=== PATIENT | male | born 1990 | race African-American/Black ===

== ENCOUNTER 2021-09-16 14:36 | Emergency (ER) | payer MEDICARE, MEDICAID ==
[~2021-09-16] VITALS: Ht 170.2 cm; Wt 70.0 kg
[2021-09-16 14:50] VITALS: BP 117/83
== END 2021-09-16 17:11 | disposition home or self-care (01) ==
LOC: ER 14:36
DX: Z48.02 Encounter for removal of sutures (principal)
CPT/HCPCS: 99281

== ENCOUNTER 2022-01-08 15:56 | Emergency (ER) | payer MEDICARE, MEDICAID ==
[~2022-01-08] VITALS: Ht 170.2 cm; Wt 69.0 kg
[2022-01-08 19:05] VITALS: BP 104/71
[2022-01-08 19:28] LABS: CLARITY URINE CLEAR (CLEAR); COLOR URINE YELLOW (YELLOW); KETONES URINE NEGATIVE (NEGATIVE); LEUKOCYTE ESTERASE URINE NEGATIVE (NEGATIVE); NITRITE URINE NEGATIVE (NEGATIVE)
[2022-01-08 19:29] LABS: OCCULT BLOOD URINE NEGATIVE (NEGATIVE); PROTEIN URINE TRACE (NEGATIVE); SPECIFIC GRAVITY URINE 1.025 (1.005-1.030); UROBILINOGEN URINE 0.2 E.U./dL (0.2-1.0)
== END 2022-01-08 20:20 | disposition home or self-care (01) ==
LOC: ER 15:56
DX: N50.811 Right testicular pain (principal)
CPT/HCPCS: 76870; 81003; 93976; 99284

== ENCOUNTER 2023-03-13 11:04 | Emergency (ER) | payer MEDICARE, MEDICAID ==
[~2023-03-13] VITALS: Ht 170.2 cm; Wt 73.9 kg
[2023-03-13 11:18] VITALS: BP 126/83; PULSE 93; RESP 16; TEMP 98.2; O2SAT 99
[2023-03-13] MEDS ORDERED: DIPHENHYDRAMINE 50MG CAPSULE PO ONE (12:45)
[2023-03-13] MEDS ORDERED: PREDNISONE 20MG TABLET PO ONE (12:45)
[2023-03-13] MEDS ORDERED: FAMOTIDINE 20MG TABLET PO ONE (12:45)
[2023-03-13] MEDS ORDERED: DIPHENHYDRAMINE 25MG CAPSULE PO NR (13:00)
[2023-03-13] MEDS ORDERED: DIPH25CA83 MT (13:50)
[2023-03-13] MEDS ORDERED: P20 MT (13:50)
[2023-03-13] MEDS ORDERED: FAMO20TA8 MT (13:51)
[2023-03-13] MEDS ORDERED: EPIN0.3P3 IM (13:53)
== END 2023-03-13 14:02 | disposition home or self-care (01) ==
LOC: ER 11:04
DX: T78.40XA Allergy, unspecified, initial encounter (principal); Z85.9 Personal history of malignant neoplasm, unspecified; Z98.890 Other specified postprocedural states; X58.XXXA Exposure to other specified factors, initial encounter
CPT/HCPCS: 99283; J7512; Q0163

== ENCOUNTER 2023-08-14 11:42 | Emergency (ER) | payer MEDICAID, MEDICARE ==
[~2023-08-14] VITALS: Ht 172.7 cm; Wt 73.0 kg
[~2023-08-14 11:42] MED LIST: DIPH25CA83 MT; EPIN0.3P3 IM; FAMO20TA8 MT; P20 MT
[2023-08-14 11:46] VITALS: BP 135/94; PULSE 104; RESP 18; TEMP 98; O2SAT 99
[2023-08-14] MEDS ORDERED: SODIUM CHLORIDE 0.9% 1,000 ML IV ONE (12:00)
[2023-08-14 12:14] LABS: BASOPHILS % 0.5 % (0.0-2.0); EOSINOPHILS % 0.2 % (0.0-5.0); HEMATOCRIT. 45.3 % (42.0-52.0); HEMOGLOBIN. 14.8 g/dL (14.0-18.0); LYMPHOCYTES % 20.7 % (20.0-50.0); MEAN CORPUSCULAR HEMOGLOBIN 26.4 pg (28.0-32.0); MEAN CORPUSCULAR HGB CONC 32.8 g/dL (31.0-37.0); MEAN CORPUSCULAR VOLUME 80.6 fL (80.0-94.0); MEAN PLATELET VOLUME 9.9 fl (7.4-10.4); MONOCYTES % 4.9 % (2.0-8.0); NEUTROPHILS % 73.7 % (40.0-76.0); PLATELET 160 x1000/uL (130-400); RED BLOOD CELL COUNT 5.62 mill/uL (4.7-6.1); RED CELL DISTRIBUTION WIDTH 15.5 % (11.6-14.6); WHITE BLOOD COUNT 9.4 x1000/uL (4.5-11.0)
[2023-08-14 12:21] LABS: CHLORIDE 103 mEq/L (98-107); INR 0.9; POTASSIUM 3.3 mEq/L (3.5-5.1); PROTHROMBIN TIME 10.3 sec (9.6-11.0); SODIUM 137 mEq/L (136-145)
[2023-08-14 12:22] LABS: CALCIUM 9.5 mg/dL (8.7-10.4); CARBON DIOXIDE 25 mEq/L (21-32)
[2023-08-14 12:27] LABS: CREATININE 0.9 mg/dL (0.6-1.3); GLUCOSE 109 mg/dL (70-105); UREA NITROGEN BLOOD 11 mg/dL (9-23)
== END 2023-08-14 16:20 | disposition left against medical advice (07) ==
LOC: ER 15:51
DX: E87.6 Hypokalemia (principal); Z85.9 Personal history of malignant neoplasm, unspecified
CPT/HCPCS: 99284; 80048; 85025; 85610; 36415; 93005; J7030

== ENCOUNTER 2023-09-28 23:03 | Emergency (ER) | payer MEDICARE ==
[~2023-09-28] VITALS: Ht 165.1 cm; Wt 73.0 kg
[2023-09-28 23:18] VITALS: BP 114/69; PULSE 112; RESP 16; O2SAT 94
[2023-09-28 23:58] LABS: HEMATOCRIT. 38.8 % (42.0-52.0); HEMOGLOBIN. 13.1 g/dL (14.0-18.0); MEAN CORPUSCULAR HEMOGLOBIN 26.7 pg (28.0-32.0); MEAN CORPUSCULAR HGB CONC 33.8 g/dL (31.0-37.0); MEAN CORPUSCULAR VOLUME 79.1 fL (80.0-94.0); MEAN PLATELET VOLUME 9.9 fl (7.4-10.4); PLATELET 143 x1000/uL (130-400); RED BLOOD CELL COUNT 4.91 mill/uL (4.7-6.1); WHITE BLOOD COUNT 5.4 x1000/uL (4.5-11.0)
[2023-09-29 00:04] LABS: CHLORIDE 103 mEq/L (98-107); POTASSIUM 3.7 mEq/L (3.5-5.1); SODIUM 135 mEq/L (136-145)
[2023-09-29 00:05] LABS: CALCIUM 8.5 mg/dL (8.7-10.4); CARBON DIOXIDE 28 mEq/L (21-32)
[2023-09-29 00:09] LABS: DIFFERENTIAL COMMENT 1
[2023-09-29 00:10] LABS: CREATININE 0.9 mg/dL (0.6-1.3); GLUCOSE 106 mg/dL (70-105); UREA NITROGEN BLOOD 15 mg/dL (9-23)
[2023-09-29 00:19] LABS: ATYPICAL LYMPHOCYTES 3; NUCLEATED RED BLOOD CELLS 1 /100 WBC; PLATELET ESTIMATE NORMAL
[2023-09-29 00:20] LABS: MICROCYTOSIS 1+; OVALOCYTES 1+
[2023-09-29] MEDS: ACETAMINOPHEN 325MG TABLET PO ONE (02:09)
[2023-09-29 03:02] VITALS: TEMP 98.5
[2023-09-29] MEDS: ACETAMINOPHEN 325MG TABLET PO NR (03:02)
[2023-09-29] MEDS: IOHEXOL-350 100 ML BOTTLE ONE (03:02)
[2023-09-29] MEDS: GUAIFENESIN 600MG ER TABLET PO ONE (03:02)
[2023-09-29] MEDS ORDERED: ALBU6.7H15 INH (03:27)
[2023-09-29] MEDS ORDERED: GUAI600T26 MT (03:27)
[2023-09-29] MEDS ORDERED: ACET-2708 MT (03:27)
== END 2023-09-29 04:00 | disposition home or self-care (01) ==
LOC: ER 23:03
DX: R06.02 Shortness of breath (principal); B34.9 Viral infection, unspecified; Z85.9 Personal history of malignant neoplasm, unspecified; Z79.899 Other long term (current) drug therapy
CPT/HCPCS: 99285; 71045; 80048; 85025; 85379; 36415; 93970; 71275; Q9967

== ENCOUNTER 2023-11-30 15:55 | Emergency (ER) | payer MEDICARE ==
[~2023-11-30] VITALS: Ht 170.2 cm; Wt 72.5 kg
[~2023-11-30 15:55] MED LIST changes: +ACET-2708 MT; +ALBU6.7H15 INH; +GUAI600T26 MT
[2023-11-30 16:01] VITALS: O2SAT 98
[2023-11-30 16:28] VITALS: BP 115/74; PULSE 98; RESP 18; TEMP 97.7; O2SAT 98
== END 2023-11-30 18:20 | disposition left against medical advice (07) ==
LOC: ER 15:55
DX: J02.9 Acute pharyngitis, unspecified (principal); Z53.21 Procedure and treatment not carried out due to patient leaving prior to being seen by health care provider